=== PATIENT | male | born 1975 | race Caucasian/White ===

== ENCOUNTER 2020-07-14 23:31 | Emergency (ER) | payer MEDICAID ==
[2020-07-15 00:25] LABS: #Basophils 0.1 thou/uL (0.0-0.2); #Eosinphils 0.1 thou/uL (0.0-0.7); #Lymphocytes 1.3 thou/uL (1.20-3.40); %Basophils 0.7 % (0.0-1.0); %Eosinophils 0.6 % (0.0-10.0); %Lymphocytes 12.7 % (21.0-51.0); %Monocytes 9.2 % (0.0-10.0); %Neutrophils 76.7 % (42.0-75.0); Hemoglobin 9.3 g/dL (14.0-18.0); Mean Corpuscular HGB CONC 32.9 g/dL (32.0-36.0); Mean Corpuscular Hemoglobin 28.9 pg (27.0-31.0); Mean Platelet Volume 6.2 fL (7.4-10.4); Platelet Count 475 thou/uL (130-400); RBC Distribution Width 13.8 % (11.5-14.5); Red Blood Cell (RBC) Count 3.22 mill/uL (4.70-6.10); White Blood Cell (WBC) Count 10.4 thou/uL (4.8-10.8)
[2020-07-15 00:35] LABS: ALT (SGPT) 73 U/L (8-55); AST (SGOT) 33 U/L (5-34); Albumin 2.8 g/dL (3.5-5.0); Alkaline Phosphatase 171 U/L (40-110); Anion Gap 13 mmol/L (10-20); BUN (Urea Nitrogen) 12 mg/dL (8.9-20.6); Bilirubin, Total 0.3 mg/dL (0.2-1.2); Calc. Creatinine Clearance 0 mL/min (70-130); Calcium 8.2 mg/dL (7.8-10.44); Carbon Dioxide 27 mmol/L (22-29); Chloride 99 mmol/L (98-107); Glucose 326 mg/dL (70-105); Sodium 135 mmol/L (136-145)
[2020-07-15 00:37] LABS: Globulin 4.4 g/dL (2.4-3.5); Protein, Total 7.2 g/dL (6.0-8.3)
[2020-07-15 00:45] LABS: Critical Call Chemistry Y
[2020-07-15] MEDS ORDERED: Sodium Chloride 0.9% 100 ML ONE (01:17)
[2020-07-15] MEDS ORDERED: Cefepime 2 GM VIAL ONE (01:17)
[2020-07-15] MEDS ORDERED: Vancomycin 1.5 GRAM/300 ML BAG ONE (01:22)
[2020-07-15] MEDS ORDERED: Morphine 4 MG/ML VIAL ONE (01:30)
[2020-07-15] MEDS ORDERED: Sodium Chloride 0.9% 1,000 ML ONE (02:31)
--- NOTE | 2020-07-15 07:39 | RAD ---
XR Knee Rt 4 View STANDARD History: Injury Comparison: None. Findings: Very large knee joint effusion. Anterolateral soft tissue swelling. Possible flake of bone in the suprapatellar recess versus radiopaque object within the laceration as it is not seen on the lateral radiograph. Concern for possible fracture of the medial tibial epiphysis below the articular surface. Impression: 1. Large joint effusion without definite intra-articular fracture appreciated highly concerning for i nternal derangement. MRI recommended. 2. Nonarticular possible fracture of the medial tibial epiphysis at the expected location of the deep MCL insertion. This can be further interrogated with MRI. 3. Possible curvilinear body within the suprapatellar recess laterally although not seen on the later al radiograph.
== END 2020-07-15 02:36 | disposition short-term general hospital (02) ==
LOC: MADERS 23:31
DX: L03.115 Cellulitis of right lower limb (principal); M25.461 Effusion, right knee; I10 Essential (primary) hypertension; E10.9 Type 1 diabetes mellitus without complications; F17.210 Nicotine dependence, cigarettes, uncomplicated; Z79.899 Other long term (current) drug therapy; V29.9XXA Motorcycle rider (driver) (passenger) injured in unspecified traffic accident, initial encounter
CPT/HCPCS: 80053; 83605; 85025; 87040; 96365; 96367; 96375; J0692; J2270; J3370; J3490; J7050